=== PATIENT | female | born 1990 | race African-American/Black ===

== ENCOUNTER 2019-05-04 17:44 | Emergency (ER) | payer MEDICAID ==
[~2019-05-04] VITALS: Ht 170.2 cm; Wt 83.5 kg
[~2019-05-04 17:44] MED LIST: CEPH-37 PO
[2019-05-04 18:40] VITALS: BP 130/84
[2019-05-04] MEDS ORDERED: METHOCARBAMOL 500 MG TAB PO ONE (19:30)
[2019-05-04] MEDS ORDERED: IBUPROFEN 800 MG TAB PO ONE (19:30)
== END 2019-05-04 20:05 | disposition home or self-care (01) ==
LOC: ER 17:52
DX: M54.2 Cervicalgia (principal); M25.512 Pain in left shoulder; F17.210 Nicotine dependence, cigarettes, uncomplicated; R42 Dizziness and giddiness; R51 Headache; V49.40XA Driver injured in collision with unspecified motor vehicles in traffic accident, initial encounter; Y93.89 Activity, other specified; Y92.89 Other specified places as the place of occurrence of the external cause; Y99.8 Other external cause status
CPT/HCPCS: 72040; 73030

== ENCOUNTER 2020-05-14 19:33 | Emergency (ER) | payer MEDICAID ==
[~2020-05-14] VITALS: Ht 170.2 cm; Wt 77.1 kg
[2020-05-14 21:59] VITALS: BP 110/73
== END 2020-05-15 02:45 | disposition home or self-care (01) ==
LOC: ER 19:33
DX: J06.9 Acute upper respiratory infection, unspecified (principal); Z20.828 Contact with and (suspected) exposure to other viral communicable diseases
CPT/HCPCS: 71045; 87804; 87880; 99284; U0003